=== PATIENT | female | born 1935 | race Caucasian/White ===

== ENCOUNTER → 2017-07-26 | Outpatient (CLI) | payer MEDICARE, OTHER ==
[~2017-07-26] MED LIST: ASPI-621 PO; CARV3.1212 PO; CEFT2FRO2 IV; CELE200C PO; DIAZ5TAB4 PO; DILT120T3 PO; FLAV100T PO; FLUT1AER INH; GABA300C10 PO; HEPA5000 SQ; HYDR-63 PO; OMEP-110 PO; POLY17PO5 PO; PREG75CA PO; SENN8.6T12 PO; SIMV40TA3 PO; TEMA30CA PO; TRAZ50TA18 PO
== END | disposition home or self-care (01) ==
LOC: ROC 13:05
PROVIDERS: ATTEND Radiology Radiation Oncology
DX: C34.12 Malignant neoplasm of upper lobe, left bronchus or lung (principal); C34.32 Malignant neoplasm of lower lobe, left bronchus or lung; F17.200 Nicotine dependence, unspecified, uncomplicated
CPT/HCPCS: G0463

== ENCOUNTER → 2017-08-10 | Outpatient (CLI) | payer MEDICARE, OTHER | END | disposition home or self-care (01) | LOC: CFH 13:57 | PROVIDERS: ATTEND Radiology Radiation Oncology | DX: C34.30 Malignant neoplasm of lower lobe, unspecified bronchus or lung (principal); I70.0 Atherosclerosis of aorta | CPT/HCPCS: 71020 ==